=== PATIENT | female | born 1960 | race Caucasian/White ===

== ENCOUNTER → 2016-08-31 | Outpatient (CLI) | payer OTHER, MEDICAID ==
[~2016-08-31] MED LIST: ASPIRIN325 MG PO; DURAGESIC 25MC25 MCG TRANS; EFFEXOR XR 3737.5 MG PO; FLEXERIL10 MG PO; HYDROCODON-ACE1 EAC4 PO; LIORESAL DS20 MG PO; NEURONTIN400 MG PO; NITROSTAT0.4 MG SL; PRENATAL 1+1)(P1 TAB PO; PROTONIX40 MG PO; SENOKOT8.6 MG PO; TYLENOL325 MG PO; VALIUM5 MG PO; ZOCOR40 MG PO
== END | disposition disaster alternative care site (69) ==
LOC: GRAD 10:03
DX: Z48.89 Encounter for other specified surgical aftercare (principal); M47.812 Spondylosis without myelopathy or radiculopathy, cervical region; Z98.890 Other specified postprocedural states

== ENCOUNTER → 2016-10-26 | Outpatient (CLI) | payer OTHER, MEDICAID | END | disposition disaster alternative care site (69) | LOC: GRAD 08:30 | DX: Z51.89 Encounter for other specified aftercare (principal); M47.892 Other spondylosis, cervical region; Z98.1 Arthrodesis status ==

== ENCOUNTER → 2016-12-01 | Outpatient (CLI) | payer MEDICAID ==
[2016-12-01 18:32] LABS: AMPHETAMINE NEGATIVE (NEGATIVE); BARBITURATE NEGATIVE (NEGATIVE); COCAINE NEGATIVE (NEGATIVE)
[2016-12-01 18:33] LABS: OPIATES POSITIVE (NEGATIVE); PROPOXYPHENE NEGATIVE (NEGATIVE)
== END ==
LOC: LGSMG 17:24
PROVIDERS: Internal Medicine
DX: M54.2 Cervicalgia (principal); Z79.899 Other long term (current) drug therapy

== ENCOUNTER → 2017-01-07 | Outpatient (CLI) | payer MEDICAID | END | disposition disaster alternative care site (69) | LOC: GRAD 13:01 | DX: R91.1 Solitary pulmonary nodule (principal) ==